=== PATIENT | female | born 1935 | race Two or more races ===

== ENCOUNTER 2021-04-12 07:06 | Outpatient (CLI) | payer OTHER | END 2021-04-12 07:18 | disposition home or self-care (01) | LOC: RX STUDY 07:06 → MAMO-SONO 07:15 → RX STUDY 07:18 | DX: R10.13 Epigastric pain (principal); N20.0 Calculus of kidney ==

== ENCOUNTER 2022-11-06 10:08 | Outpatient (CLI) | payer OTHER | END 2022-11-06 10:11 | disposition home or self-care (01) | LOC: RX STUDY 10:08 | PROVIDERS: ATTEND Internal Medicine Gastroenterology | DX: R13.10 Dysphagia, unspecified (principal) ==